=== PATIENT | female | born 1980 | race Caucasian/White ===

== ENCOUNTER 2018-11-29 09:09 | Emergency (ER) | payer OTHER ==
[2018-11-29 09:12] VITALS: BMI 30.4
[2018-11-29 09:14] VITALS: O2SAT 100
--- NOTE | 2018-11-29 09:48 | ED PDOC ---
HPI: Abdomen Time Seen by Provider: 11/29/18 09:16 Chief Complaint (Nursing): Abdominal Pain Chief Complaint (Provider): Abdominal Pain History Per: Patient History/Exam Limitations: no limitations Onset/Duration Of Symptoms: Sudden Onset Current Symptoms Are (Timing): Still Present Additional Complaint(s): 38 year old female presents to the emergency department with a complaint of left, lower pelvic pain that extends to back status post heavy lifting prior to arrival. She additionally reports a tactile fever but denies shortness of breath, chest pain, diffuse abdominal pain, urinary symptoms, nausea, vomiting, or vaginal pain. Patient state she is but has not had a sonogram, thus far. LMP: 10/21/18. PCP: Dr. Andrea Del Rosario Past Medical History Reviewed: Historical Data, Nursing Documentation, Vital Signs Vital Signs: Last Vital Signs Temp 97.3 F L 11/29/18 09:12 Pulse 94 H 11/29/18 09:12 Resp 17 11/29/18 09:12 BP 122/75 11/29/18 09:12 Pulse Ox 100 11/29/18 09:12 - Medical History PMH: No Chronic Diseases - Family History Family History: States: Unknown Family Hx - Allergies Allergies/Adverse Reactions: Allergies Allergy/AdvReac Type Severity Reaction Status Date / Time No Known Allergies Allergy Verified 11/29/18 09:20 Review of Systems ROS Statement: Except As Marked, All Systems Reviewed And Found Negative Constitutional: Positive for: Fever Cardiovascular: Negative for: Chest Pain Respiratory: Negative for: Shortness of Breath Gastrointestinal: Negative for: Nausea, Vomiting, Abdominal Pain Genitourinary Female: Positive for: Pelvic Pain (LLQ). Negative for: Dysuria, Hematuria, Vaginal Bleeding Musculoskeletal: Positive for: Back Pain (left sided) Physical Exam - Reviewed Nursing Documentation Reviewed: Yes Vital Signs Reviewed: Yes - Physical Exam Appears: Positive for: Well, Non-toxic, No Acute Distress Head Exam: Positive for: ATRAUMATIC, NORMAL INSPECTION, NORMOCEPHALIC Skin: Positive for: Normal Color Eye Exam: Positive for: Normal appearance ENT: Positive for: Normal ENT Inspection Neck: Positive for: Normal Cardiovascular/Chest: Positive for: Regular Rate, Rhythm Respiratory: Positive for: Normal Breath Sounds. Negative for: Respiratory Distress Pulses-Radial (L): 2+ Pulses-Radial (R): 2+ Gastrointestinal/Abdominal: Positive for: Normal Exam, Soft. Negative for: T enderness Back: Positive for: Normal Inspection. Negative for: Vertebral Tenderness, Decreased ROM Extremity: Positive for: Normal ROM (upper/lower) Neurological/Psych: Positive for: Awake, Alert, Normal Tone, Oriented. Negative for: Motor/Sensory Deficits - Laboratory Results Result Diagrams: 11/29/18 09:30 11/29/18 09:30 Interpretation Of Abn Labs: no acute - ECG O2 Sat by Pulse Oximetry: 100 (RA) Pulse Ox Interpretation: Normal - CT Scan/US us Other Rad Studies (CT/US): Read By Radiologist Other Rad Interpretation: sliup - Progress ED Course And Treament: 1211: Stable. AAOx3. Return if your not better in 3 days. Medical Decision Making Medical Decision Making: Time: 909 Initial Plan: * Labs including BETA-HCG * US OB transvaginal Scribe Attestation: Documented by Juliette Sandoval, acting as a scribe for Anatoly Collins MD. Provider Scribe Attestation: All medical record entries made by the Scribe were at my direction and personally dictated by me. I have reviewed the chart and agree that the record accurately reflects my personal performance of the history, physical exam, medical decision making, and the department course for this patient. I have also personally directed, reviewed, and agree with the discharge instructions and disposition. Disposition - Clinical Impression Clinical Impression: Threatened - Patient ED Disposition Is Patient to be Admitted: No Counseled Patient/Family Regarding: Studies Performed, Diagnosis, Need For Followup - Disposition [facility] Disposition: Routine/Home Disposition Time: 12:12 Condition: STABLE Additional Instructions: Return if not better in 3 days. Instructions: Threatened Miscarriage Print Language: LUXEMBOURGER
[2018-11-29 10:04] LABS: BASO % 0.5 % (0.0-2.0); EOS # 0.1 K/uL (0.0-0.7); EOS % 0.7 % (0.0-4.0); HEMOGLOBIN 13.5 g/dL (12.0-16.0); LYMPH # 2.2 K/uL (1.0-4.3); LYMPH % 25.6 % (20.0-40.0); MEAN CELL VOLUME 92.4 fl (81.0-99.0); MEAN CORPUSCULAR HEMOGLOBIN 30.5 pg (27.0-31.0); MEAN PLATELET VOLUME 8.5 fl (7.2-11.7); MONO # 0.6 K/uL (0.0-0.8); NEUT # 5.7 K/uL (1.8-7.0); NEUT % 66.2 % (50.0-75.0); RBC 4.41 Mil/uL (3.80-5.20); WHITE BLOOD COUNT 8.6 K/uL (4.8-10.8)
[2018-11-29 10:14] LABS: ALB/GLOB RATIO 1.3 (1.0-2.1); ALBUMIN 4.6 g/dL (3.5-5.0); ALT/SGPT 25 U/L (9-52); AST/SGOT 29 U/L (14-36); BLOOD UREA NITROGEN 13 mg/dl (7-17); CALCIUM 9.7 mg/dL (8.4-10.2); GFR NON-AFRICAN AMERICAN > 60
--- NOTE | 2018-11-29 10:49 | US ---
Date of service: 11/29/2018 PROCEDURE: OB Pelvic Ultrasound HISTORY: preg and pain LMP: 10/21/2018 COMPARISON: No relevant prior imaging. FINDINGS: UTERUS: Gestational sac: Single intrauterine gestation. Mean sac diameter measures 3.3 cm compatible with estimated gestational age of 8 weeks, 2 days Yolk sac: Present, measuring 0.3 cm pole: [place]-rump length measures 2.0 cm compatible with estimated gestational age of 8 weeks, 2 days Heart rate: 170 bpm. age (Ultrasound estimated): 8 weeks, 3 days Millicent-gestational hemorrhage: None. Date of delivery (Ultrasound estimated) : 07/08/2019 Uterus measures 9.6 x 6.4 x 7.4 cm. Normal in size and appearance. CERVIX: Measures 3.2 cm. Long and closed. No cervical abnormality seen. RIGHT OVARY: Measures 1.3 x 1.7 x 1.2 cm. No mass lesion. Normal flow. LEFT OVARY: Measures 3.6 x 1.4 x 1.5 cm. Corpus luteum measures 2.6 x 1.5 x 1.8 cm. Normal flow. FREE FLUID: None. OTHER FINDINGS: None. IMPRESSION: Single live intrauterine gestation with average ultrasound age of 8 weeks, 3 days. heart rate 170 beats per minute. Cervix long and closed.
[2018-11-29 11:08] LABS: SQUAMOUS EPITHIAL 5 /hpf (0-5); URINE BACTERIA FEW (<OCC); URINE BILIRUBIN NEGATIVE (NEGATIVE); URINE BLOOD NEGATIVE (NEGATIVE); URINE CLARITY SLIGHTY-CLOUDY (Clear); URINE COLOR YELLOW (YELLOW); URINE GLUCOSE (UA) NEG (NEGATIVE); URINE LEUKOCYTE ESTERASE TRACE Leu/uL (Negative); URINE PROTEIN NEGATIVE (NEGATIVE); URINE UROBILINOGEN 0.2-1.0 mg/dL (0.2-1.0)
[2018-11-29 12:20] VITALS: BP 122/68; PULSE 66; RESP 16; TEMP 97.9
== END 2018-11-29 12:46 | disposition home or self-care (01) ==
LOC: H.ER 09:09
DX: O20.0 Threatened abortion (principal)